=== PATIENT | male | born 1990 | race Caucasian/White ===

== ENCOUNTER 2016-07-12 10:52 | Emergency (ER) | payer OTHER ==
[~2016-07-12] VITALS: Ht 182.8 cm; Wt 83.9 kg
--- NOTE | ~2016-07-12 | EKG ---
[place], [place] ELECTROCARDIOGRAM REPORT NAME: YOAHNA EDMONDS UNIT #: [id number] ROOM: DOCTOR: PORTIA TOVAR MD BIRTHDATE: [birth year] DOS: 07/12/2016 TIME: 1140 hours. FINDINGS: 1. Normal sinus rhythm with single PVC recorded. 2. Otherwise normal electrocardiogram. PORTIA TOVAR MD CM:EKGRPT:ELECTROCARDIOGRAM REPORT [id number] PORTIA TOVAR MD
[~2016-07-12 10:52] MED LIST: AMOXICILLIN500 M2 PO; ATARAX,VISTARIL50 MG PO; CEPHALEXIN500 M1 PO; KEFLEX500 MG PO; KENALOG 0.1%80 GM T; Motrin,Rufen800 MG PO; NKHM; NORCO 10-325 T1 EACH PO; PREDNISONE20 M1 PO
[2016-07-12 11:46] LABS: BASO % 0.4 % (0.0-1.0); EOS # 0.3 10*3/uL (0.0-0.4); EOS % 4.5 % (1.0-4.0); HEMOGLOBIN 16.3 g/dl (14.0-18.0); LYMPH # 2.1 10*3/uL (1.3-4.4); LYMPH % 30.8 % (27.0-41.0); MEAN CELL VOLUME 93.4 fl (80.0-94.0); MEAN CORPUSCULAR HGB 31.7 pg (27.0-31.0); MEAN PLATELET VOLUME 10.2 fl (9.6-12.3); MONO # 1.1 10*3/uL (0.1-1.0); MONO % 15.7 % (3.0-9.0); NEUT # 3.2 10*3/uL (2.3-7.9); NEUT % 48.2 % (47.0-73.0); PLATELET COUNT AUTOMATED 201 10*3/uL (130-400); RED BLOOD COUNT 5.14 10*6/uL (4.50-5.90); RED CELL DISTRI WIDTH 12.2 % (0-14.5); WHITE BLOOD COUNT 6.7 10*3/uL (4.8-10.8)
[2016-07-12 12:01] LABS: BUN 12 mg/dl (7-24); CARBON DIOXIDE 31 mmol/L (21-32); CHLORIDE 105 mmol/L (98-107); EST GLOM FILT AFRICAN AMERICAN > 60 ml/min; GLUCOSE 83 mg/dL (65-99); MAGNESIUM 2.3 mg/dL (1.5-2.1); POTASSIUM 4.5 mmol/L (3.5-5.1); SODIUM 143 mmol/L (136-145)
[2016-07-12 12:02] LABS: TROPONIN I < 0.015 ng/ml (<0.045)
== END 2016-07-12 12:59 | disposition home or self-care (01) ==
LOC: ED 10:52
PROVIDERS: Emergency Medicine
DX: R00.2 Palpitations (principal); F17.200 Nicotine dependence, unspecified, uncomplicated; Z90.49 Acquired absence of other specified parts of digestive tract

== ENCOUNTER 2017-02-02 15:17 | Emergency (ER) | payer OTHER ==
[~2017-02-02] VITALS: Ht 182.8 cm; Wt 86.2 kg
[2017-02-02] MEDS ORDERED: CLARITIN10 MG PO (15:32)
[2017-02-02] MEDS ORDERED: FLONASE ALLERG9.9 ML NAS (15:32)
[2017-02-02] MEDS ORDERED: ROBITUSSIN DM 105 ML PO (15:32)
[2017-02-02] MEDS ORDERED: PREDNISONE10 MG PO (15:32)
== END 2017-02-02 16:42 | disposition home or self-care (01) ==
LOC: ED 15:17
DX: B34.9 Viral infection, unspecified (principal); R03.0 Elevated blood-pressure reading, without diagnosis of hypertension; F17.200 Nicotine dependence, unspecified, uncomplicated; F10.10 Alcohol abuse, uncomplicated

== ENCOUNTER 2022-07-28 20:07 | Emergency (ER) | payer OTHER ==
[~2022-07-28 20:07] MED LIST changes: +CLARITIN10 MG PO; +FLONASE ALLERG9.9 ML NAS; +PREDNISONE10 MG PO; +ROBITUSSIN DM 105 ML PO
== END 2022-07-28 21:41 | disposition home or self-care (01) ==
LOC: ED 20:07
DX: S60.221A Contusion of right hand, initial encounter (principal); Z90.49 Acquired absence of other specified parts of digestive tract; Z98.890 Other specified postprocedural states; W22.8XXA Striking against or struck by other objects, initial encounter; Y93.89 Activity, other specified; Y92.009 Unspecified place in unspecified non-institutional (private) residence as the place of occurrence of the external cause; Y99.8 Other external cause status

== ENCOUNTER 2022-09-27 22:56 | Emergency (ER) | payer OTHER ==
[~2022-09-27] VITALS: Ht 182.8 cm; Wt 90.7 kg
[2022-09-27 23:16] LABS: BASO # 0.1 10*3/uL (0.0-0.1); BASO % 0.4 % (0.0-1.0); EOS # 0.5 10*3/uL (0.0-0.4); EOS % 4.6 % (1.0-4.0); LYMPH # 2.9 10*3/uL (1.3-4.4); LYMPH % 25.6 % (27.0-41.0); MEAN CELL VOLUME 91.8 fl (80.0-94.0); MEAN CORPUSCULAR HGB 32.3 pg (27.0-31.0); MEAN CORPUSCULAR HGB CONC 35.2 g/dl (33.0-37.0); MEAN PLATELET VOLUME 9.5 fl (9.6-12.3); MONO # 0.9 10*3/uL (0.1-1.0); MONO % 7.9 % (3.0-9.0); NEUT # 6.8 10*3/uL (2.3-7.9); NEUT % 61.1 % (47.0-73.0); PLATELET COUNT AUTOMATED 241 10*3/uL (130-400); RED BLOOD COUNT 5.23 10*6/uL (4.50-5.90); RED CELL DISTRI WIDTH 12.4 % (0-14.5); WHITE BLOOD COUNT 11.2 10*3/uL (4.8-10.8)
[2022-09-27 23:42] LABS: ALKALINE PHOSPHATASE 94 U/L (46-116); BUN 5 mg/dl (9-23); CHLORIDE 106 mmol/L (98-107); ETHYL ALCOHOL 236.7 mg/dl (<3); POTASSIUM 3.1 mmol/L (3.4-5.1); SGPT/ALT 26 U/L (10-49); TOTAL PROTEIN 7.2 gm/dL (6.0-8.0)
[2022-09-28 07:36] LABS: BILIRUBIN Negative (Negative); BLOOD Negative (Negative); CLARITY Clear (Clear); COLOR Yellow (Yellow); GLUCOSE Negative (Negative); KETONE Negative (Negative); LEUKO ESTERASE Negative (Negative); NITRITE Negative (Negative); PH 6.5 (4.5-8.0); SPECIFIC GRAVITY <= 1.005 (1.001-1.030); UROBILINOGEN 0.2 E.U./dl (0.0-1.0)
[2022-09-28 07:44] LABS: URINE AMPHETAMINES Negative (1000ng/ml); URINE BARBITURATES Negative (200ng/ml); URINE BENZODIAZEPINES Negative (200ng/ml); URINE CANNABINOIDS (THC) Negative (50ng/ml); URINE COCAINE Negative (300ng/ml); URINE METHADONE Negative (300ng/ml); URINE OPIATES Negative (300ng/ml); URINE PHENCYCLIDINE Negative (25ng/ml)
[2022-09-28 07:45] LABS: WBC 0-2 wbc/hpf (0-5)
== END 2022-09-28 14:01 | disposition home or self-care (01) ==
LOC: ED 22:56
PROVIDERS: Emergency Medicine
DX: F10.920 Alcohol use, unspecified with intoxication, uncomplicated (principal); R45.851 Suicidal ideations; Y90.4 Blood alcohol level of 80-99 mg/100 ml

== ENCOUNTER 2023-04-27 13:59 | Emergency (ER) | payer OTHER ==
[~2023-04-27] VITALS: Ht 180.3 cm; Wt 86.2 kg
[2023-04-27 15:31] LABS: BASO % 0.2 % (0.0-1.0); EOS # 0.1 10*3/uL (0.0-0.4); EOS % 0.6 % (1.0-4.0); HEMATOCRIT 45.9 % (42.0-52.0); LYMPH # 1.3 10*3/uL (1.3-4.4); LYMPH % 7.6 % (27.0-41.0); MEAN CELL VOLUME 93.7 fl (80.0-94.0); MEAN CORPUSCULAR HGB CONC 33.1 g/dl (33.0-37.0); MEAN PLATELET VOLUME 9.9 fl (9.6-12.3); MONO # 1.5 10*3/uL (0.1-1.0); MONO % 8.4 % (3.0-9.0); NEUT # 14.6 10*3/uL (2.3-7.9); NEUT % 82.7 % (47.0-73.0); PLATELET COUNT AUTOMATED 218 10*3/uL (130-400); RED CELL DISTRI WIDTH 12.4 % (0-14.5); WHITE BLOOD COUNT 17.6 10*3/uL (4.8-10.8)
[2023-04-27 15:51] LABS: BUN 7 mg/dl (9-23); CHLORIDE 105 mmol/L (98-107); POTASSIUM 3.5 mmol/L (3.4-5.1)
[2023-04-27] MEDS ORDERED: CEPHALEXIN500 M1 PO (16:39)
[2023-04-27] MEDS ORDERED: VIBRAMYCIN100 MG PO (16:39)
[2023-04-28] MEDS ORDERED: PROZAC40 M1 PO (19:28)
== END 2023-04-27 16:45 | disposition home or self-care (01) ==
LOC: ED 13:59
PROVIDERS: Physician Assistant Medical
DX: L03.116 Cellulitis of left lower limb (principal); Z90.49 Acquired absence of other specified parts of digestive tract

== ENCOUNTER 2023-04-28 19:05 | Emergency (ER) | payer OTHER ==
[~2023-04-28] VITALS: Ht 180.3 cm; Wt 86.2 kg
[~2023-04-28 19:05] MED LIST changes: +VIBRAMYCIN100 MG PO
[2023-04-28] MEDS ORDERED: PROZAC40 M1 PO (19:28)
[2023-04-28 19:57] LABS: BASO % 0.3 % (0.0-1.0); EOS # 0.3 10*3/uL (0.0-0.4); EOS % 2.4 % (1.0-4.0); LYMPH # 1.6 10*3/uL (1.3-4.4); LYMPH % 11.5 % (27.0-41.0); MEAN CELL VOLUME 93.4 fl (80.0-94.0); MEAN CORPUSCULAR HGB 31.1 pg (27.0-31.0); MEAN CORPUSCULAR HGB CONC 33.3 g/dl (33.0-37.0); MEAN PLATELET VOLUME 10.1 fl (9.6-12.3); MONO # 1.2 10*3/uL (0.1-1.0); MONO % 8.8 % (3.0-9.0); NEUT # 10.7 10*3/uL (2.3-7.9); NEUT % 76.6 % (47.0-73.0); PLATELET COUNT AUTOMATED 229 10*3/uL (130-400); RED BLOOD COUNT 4.82 10*6/uL (4.50-5.90); RED CELL DISTRI WIDTH 12.2 % (0-14.5); WHITE BLOOD COUNT 13.9 10*3/uL (4.8-10.8)
[2023-04-28 20:25] LABS: BUN 6 mg/dl (9-23); CHLORIDE 106 mmol/L (98-107); POTASSIUM 3.5 mmol/L (3.4-5.1)
== END 2023-04-28 21:30 | disposition home or self-care (01) ==
LOC: ED 19:05
PROVIDERS: Physician Assistant Medical
DX: L03.116 Cellulitis of left lower limb (principal); R11.10 Vomiting, unspecified; F17.200 Nicotine dependence, unspecified, uncomplicated; Z79.2 Long term (current) use of antibiotics; Z79.899 Other long term (current) drug therapy

== ENCOUNTER 2023-11-19 03:32 | Emergency (ER) | payer SELFPAY ==
[~2023-11-19] VITALS: Ht 182.8 cm; Wt 85.0 kg
[~2023-11-19 03:32] MED LIST changes: +PROZAC40 M1 PO
== END 2023-11-19 05:25 | disposition left against medical advice (07) ==
LOC: ED 03:32
DX: S60.511A Abrasion of right hand, initial encounter (principal); M54.50 Low back pain, unspecified; Z53.29 Procedure and treatment not carried out because of patient's decision for other reasons; Z90.49 Acquired absence of other specified parts of digestive tract; Z98.890 Other specified postprocedural states; W51.XXXA Accidental striking against or bumped into by another person, initial encounter; Y93.89 Activity, other specified; Y92.009 Unspecified place in unspecified non-institutional (private) residence as the place of occurrence of the external cause; Y99.8 Other external cause status

== ENCOUNTER → 2024-11-27 | Outpatient (CLI) | payer OTHER ==
[2024-11-27 12:35] LABS: BASO # 0.0 10*3/uL (0.0-0.1); BASO % 0.2 % (0.0-1.0); EOS # 0.3 10*3/uL (0.0-0.4); EOS % 2.3 % (1.0-4.0); MEAN CELL VOLUME 91.5 fl (80.0-94.0); MEAN CORPUSCULAR HGB 30.6 pg (27.0-31.0); MEAN PLATELET VOLUME 10.0 fl (9.6-12.3); MONO # 1.4 10*3/uL (0.1-1.0); MONO % 10.8 % (3.0-9.0); NEUT # 9.0 10*3/uL (2.3-7.9); NEUT % 70.8 % (47.0-73.0); NUCLEATED RED BLOOD CELL 0.0 % (0.0-0.0); NUCLEATED RED BLOOD CELL 0.0 10*3/uL (0.0-0.0); PLATELET COUNT AUTOMATED 254 10*3/uL (130-400); RED CELL DISTRI WIDTH 11.9 % (0-14.5)
[2024-11-27 13:19] LABS: BUN 9 mg/dl (9-23); FREE T4 1.35 ng/dl (0.89-1.76); SGPT/ALT 17 U/L (5-49)
== END ==
LOC: LAB 12:15
PROVIDERS: ATTEND Internal Medicine Nephrology
DX: F19.11 Other psychoactive substance abuse, in remission (principal); F10.10 Alcohol abuse, uncomplicated

== ENCOUNTER → 2024-12-18 | Outpatient (CLI) | payer OTHER | END | disposition home or self-care (01) | LOC: LAB 10:42 | PROVIDERS: ATTEND Internal Medicine Nephrology | DX: R63.4 Abnormal weight loss (principal) ==

== ENCOUNTER 2025-01-24 14:04 | Emergency (ER) | payer OTHER ==
[~2025-01-24] VITALS: Ht 182.8 cm; Wt 77.1 kg
[2025-01-24] MEDS ORDERED: MELOXICAM7.5 MG PO (14:42)
[2025-01-24] MEDS ORDERED: HYDROCODONE-AC1 EAC1 PO (14:42)
[2025-01-24] MEDS ORDERED: METAXALONE800 M2 PO (14:42)
[2025-01-24] MEDS ORDERED: PREDNISONE10 M1 PO (14:42)
[2025-01-24] MEDS ORDERED: Cyclobenzaprine Hydrochlorid 10 MG TAB PO ONE (14:55)
[2025-01-24] MEDS ORDERED: Acetaminophen/Hydrocodone 5 MG/325 MG TABLET PO ONE (14:55)
[2025-01-24] MEDS ORDERED: Cyclobenzaprine Hydrochlorid 10 MG TAB ONE (15:28)
[2025-01-24] MEDS ORDERED: Acetaminophen/Hydrocodone 5 MG/325 MG TABLET ONE (15:28)
== END 2025-01-24 15:00 | disposition home or self-care (01) ==
LOC: ED 14:04
DX: S13.4XXA Sprain of ligaments of cervical spine, initial encounter (principal); R51.9 Headache, unspecified; W19.XXXA Unspecified fall, initial encounter; Y93.89 Activity, other specified; Y92.89 Other specified places as the place of occurrence of the external cause; Y99.8 Other external cause status

== ENCOUNTER → 2025-02-08 | Day surgery (SDC) | payer OTHER ==
[~2025-02-08] VITALS: Ht 180.3 cm; Wt 73.5 kg
[~2025-02-08] MED LIST changes: +HYDROCODONE-AC1 EAC1 PO; +Lactated Ringer's Solution 1,000 ML IV ONE; +Lidocaine Hydrochloride 2% 5 ML SDV IM ONE; +MELOXICAM7.5 MG PO; +METAXALONE800 M2 PO; +PREDNISONE10 M1 PO; +PROPOFOL 200 MG/20 ML VIAL IV ONE
[2025-02-08 08:15] VITALS: BP 111/68
[2025-02-08 09:43] VITALS: BP 84/38
[2025-02-08 09:58] VITALS: BP 116/94
[2025-02-08 10:13] VITALS: BP 128/745
== END | disposition home or self-care (01) ==
LOC: SDC 01-15 14:00
PROVIDERS: ATTEND Surgery
DX: K52.9 Noninfective gastroenteritis and colitis, unspecified (principal); F17.200 Nicotine dependence, unspecified, uncomplicated; F12.90 Cannabis use, unspecified, uncomplicated; Z98.890 Other specified postprocedural states; Z90.49 Acquired absence of other specified parts of digestive tract

== ENCOUNTER 2025-03-09 10:46 | Emergency (ER) | payer OTHER ==
[~2025-03-09 10:46] MED LIST changes: -Lactated Ringer's Solution 1,000 ML IV ONE; -Lidocaine Hydrochloride 2% 5 ML SDV IM ONE; -PROPOFOL 200 MG/20 ML VIAL IV ONE
[2025-03-09] MEDS ORDERED: Acetaminophen/Oxycodone 5 MG/325 MG TABLET PO ONE ×2 (11:05→12:25)
[2025-03-09] MEDS ORDERED: METHOCARBAMOL750 M1 PO (12:23)
[2025-03-09] MEDS ORDERED: PREDNISONE20 M1 PO (12:23)
== END 2025-03-09 12:25 | disposition home or self-care (01) ==
LOC: ED 10:46
DX: M48.02 Spinal stenosis, cervical region (principal); M50.221 Other cervical disc displacement at C4-C5 level; G92.9 Unspecified toxic encephalopathy; Z79.899 Other long term (current) drug therapy; Z90.49 Acquired absence of other specified parts of digestive tract